=== PATIENT | female | born 1940 | race American Indian/Alaskan Native ===

== ENCOUNTER 2017-05-25 09:52 | Emergency (ER) | payer MEDICARE, OTHER ==
[2017-05-25 10:01] VITALS: BP 141/96; PULSE 89; RESP 14; TEMP 98.3; O2SAT 100
[2017-05-25 10:08] VITALS: BMI 24.6
[2017-05-25 11:27] LABS: PH,URINE 6.5 (4.7-8.0); URINE BILIRUBIN NEGATIVE (NEGATIVE); URINE BLOOD NEGATIVE (NEGATIVE); URINE GLUCOSE (UA) NEGATIVE (NEGATIVE); URINE LEUKOCYTE ESTERASE NEGATIVE Leu/uL (NEGATIVE); URINE NITRATE NEGATIVE (NEGATIVE); URINE PROTEIN NEGATIVE mg/dL (<30 mg/dL); URINE UROBILINOGEN 0.2 E.U./dL (<1 E.U./dL)
--- NOTE | 2017-05-25 11:27 | RAD ---
HISTORY: dizziness COMPARISON: 03/04/2017 FINDINGS: LUNGS: No active pulmonary disease. PLEURA: No significant pleural effusion identified, no pneumothorax apparent. CARDIOVASCULAR: Normal. OSSEOUS STRUCTURES: No significant abnormalities. VISUALIZED UPPER ABDOMEN: Normal. OTHER FINDINGS: None. IMPRESSION: No active disease.
[2017-05-25 11:28] LABS: URINE APPEARANCE CLEAR (CLEAR); URINE COLOR YELLOW (YELLOW)
[2017-05-25 11:29] LABS: ALB/GLOB RATIO 1.2 (1.1-1.8); ALBUMIN 4.4 g/dL (3.0-4.8); ALT/SGPT 32 U/L (7-56); AST/SGOT 32 U/L (15-39); BLOOD UREA NITROGEN 24 mg/dL (7-21); CALCIUM 11.2 mg/dL (8.4-10.5); GFR AFRICAN-AMERICAN > 60; GFR NON-AFRICAN AMERICAN 54
[2017-05-25 11:44] LABS: BASO # 0.02 K/mm3 (0.0-2.0); BASO % 0.3 % (0.0-3.0); EOS # 0.1 (0.0-0.7); EOS % 1.7 % (1.5-5.0); GRAN # 4.29 (1.4-6.5); GRAN % 59.2 % (50.0-68.0); HEMOGLOBIN 11.7 gm/dL (12.0-16.0); LYMPH # 2.1 (1.2-3.4); LYMPH % 29.1 % (22.0-35.0); MEAN CELL VOLUME 87.2 fL (80.0-105.0); MEAN CORPUSCULAR HEMOGLOBIN 27.8 pg (25.0-35.0); MEAN CORPUSCULAR HGB CONC 31.9 g/dl (31.0-37.0); MEAN PLATELET VOLUME 11.1 fl (7.0-11.0); MONO # 0.7 (0.1-0.6); MONO % 9.7 % (1.0-6.0); PLATELET COUNT 203 10^3/uL (120.0-450.0); RBC 4.21 10^6/uL (3.5-6.1); RED CELL DISTRIBUTION WIDTH 13.1 % (11.5-14.5); WHITE BLOOD COUNT 7.2 10^3/ul (4.5-11.0)
--- NOTE | 2017-05-25 11:50 | CT ---
PROCEDURE: CT HEAD WITHOUT CONTRAST. HISTORY: headache, h/o aneurysm COMPARISON: 03/04/2017. TECHNIQUE: Axial computed tomography images were obtained through the head/brain without intravenous contrast. Radiation dose: Total exam DLP = 733.78 MGy-cm. This CT exam was performed using one or more of the following dose reduction techniques: Automated exposure control, adjustment of the mA and/or kV according to patient size, and/or use of iterative reconstruction technique. FINDINGS: HEMORRHAGE: Stable encephalomalacia region left temporal lobe. BRAIN: Surgical clips likely related to known history of aneurysm/repair in the expected location of the intracranial left carotid artery. VENTRICLES: Unremarkable. No hydrocephalus. CALVARIUM: Stable craniotomy findings left temporal parietal bone PARANASAL SINUSES: Unremarkable as visualized. No significant inflammatory changes. MASTOID AIR CELLS: Unremarkable as visualized. No inflammatory changes. OTHER FINDINGS: None. IMPRESSION: No significant interval change compared to the prior examination(s).
--- NOTE | 2017-05-25 12:21 | ED PDOC ---
Arrival/HPI - General Chief Complaint: Dizziness/Lightheaded Time Seen by Provider: 05/25/17 10:39 Historian: Patient - History of Present Illness Narrative History of Present Illness (Text): 05/25/17 10:41 A 77 year old female, whose past medical history includes vertigo and brain aneurysm, presents to the emergency department from her daycare program complaining of dizziness. Notes dizziness is worse when moving head, feels like spinning. Reports nausea with head movement, right ear pain and right sided headache but denies any chest pain, shortness of breath or any other complaints at this time. PMD: Dr. Deal Symptom Onset: Sudden Symptom Course: Unchanged Activities at Onset: Rest Context: Home Past Medical History - Provider Review Nursing Documentation Reviewed: Yes - Infectious Disease Hx of Infectious Diseases: None - Reproductive Menopause: Yes - Cardiac Hx Cardiac Disorders: Yes (AORTIC STENOSIS) Hx Hypertension: Yes - Pulmonary Hx Respiratory Disorders: No - Neurological HX Cerebrovascular Accident: Yes Hx Dizziness: Yes Other/Comment: use dto take meclizine - HEENT Hx HEENT Disorder: Yes Hx Blind: Yes (left eye) Hx Cataracts: Yes (L) - Renal Hx Renal Disorder: No - Endocrine/Metabolic Hx Endocrine Disorders: No - Hematological/Oncological Hx Blood Disorders: No - Integumentary Hx Dermatological Disorder: No - Musculoskeletal/Rheumatological Hx Musculoskeletal Disorders: Yes Hx Falls: Yes Hx Osteoarthritis: Yes Other/Comment: RIGHT TOTAL KNEE ARTHROPLASTY - Gastrointestinal Hx Gastrointestinal Disorders: Yes (CONSTIPATION) Hx Gastroesophageal Reflux: Yes - Genitourinary/Gynecological Hx Genitourinary Disorders: No - Psychiatric Hx Psychophysiologic Disorder: No Hx Substance Use: No - Surgical History Hx Cardiac Catheterization: Yes Other/Comment: aneurysm clipped with plate placement - Anesthesia Hx Anesthesia: Yes Hx Anesthesia Reactions: No Family/Social History - Physician Review Nursing Documentation Reviewed: Yes Family/Social History: No Known Family HX Smoking Status: Never Smoked Hx Alcohol Use: No Hx Substance Use: No Allergies/Home Meds Allergies/Adverse Reactions: Allergies No Known Allergies Allergy (Verified 05/25/17 09:57) Home Medications: Home Meds Medication Instructions Recorded Confirmed Gabapentin [Neurontin] 100 mg PO DAILY 10/22/16 05/25/17 Docusate [Colace] 1 tab PO HS 05/25/17 05/25/17 Telmisartan/Amlodipine 40 g PO DAILY 05/25/17 05/25/17 [Telmisartan-Amlodipine 40-10] amLODIPine [Norvasc] 5 mg PO DAILY 05/25/17 05/25/17 Review of Systems - Physician Review All systems were reviewed & negative as marked: Yes - Review of Systems ENT: Other (R ear pain) Respiratory: absent: SOB Cardiovascular: absent: Chest Pain Gastrointestinal: Nausea Neurological: Headache (R sided), Dizziness Physical Exam - Physical Exam Narrative Physical Exam (Text): Constitutional: No acute distress. Head: Normocephalic. Atraumatic. Eyes: PERRL. ENT: Moist mucous membranes. R TM obstructed by cerumen. Neck: Supple. Cardiovascular: Regular rate. Chest: No tenderness. Respiratory: Clear to auscultation bilaterally. GI: Soft. Nontender. Nondistended. Back: No CVA tenderness. Musculoskeletal: No tenderness or swelling of extremities. Skin: No rash. Neurologic: Alert, no focal deficit. Positive ely hallpike test. Vital Signs Reviewed: Yes Vital Signs Temp Pulse Resp BP Pulse Ox 05/25/17 10:01 98.3 F 89 14 141/96 H 100 Temperature: Afebrile Blood Pressure: Hypertensive Pulse: Regular Respiratory Rate: Normal Appearance: Positive for: Well-Appearing, Non-Toxic, Comfortable Pain Distress: None Mental Status: Positive for: Alert and Oriented X 3 Finger Stick Blood Glucose: 140 Medical Decision Making ED Course and Treatment: 05/25/17 10:41 Impression: A 77 year old female with dizziness. Plan: -- EKG -- chest xray -- CT head -- labs -- Urinalysis -- Antivert -- Reassess and disposition Progress Notes: 05/25/17 11:00 EKG: Ordered, reviewed, and independently interpreted the EKG. Rate : 80 BPM Rhythm : NSR Interpretation : No ST/T wave changes chest xray: Creator : Vinay Dominguez MD IMPRESSION: No active disease. 05/25/17 11:52 CT HEAD WITHOUT CONTRAST Creator : Negro Terrazas MD FINDINGS: HEMORRHAGE: Stable encephalomalacia region left temporal lobe. BRAIN: Surgical clips likely related to known history of aneurysm/repair in the expected location of the intracranial left carotid artery. VENTRICLES: Unremarkable. No hydrocephalus. CALVARIUM: Stable craniotomy findings left temporal parietal bone PARANASAL SINUSES: Unremarkable as visualized. No significant inflammatory changes. MASTOID AIR CELLS: Unremarkable as visualized. No inflammatory changes. OTHER FINDINGS: None. IMPRESSION: No significant interval change compared to the prior examination(s). Patient states she feels much better. Labs unremarkable. Discussed case with Dr. Hart who states patient can see him in office today or tomorrow. Will discharge home, continue meclizine, return to ER for worsening dizziness, vomiting, syncope, fever, dyspnea, or any other problem. - Lab Interpretations Lab Results: 05/25/17 11:07 05/25/17 11:07 Lab Results 05/25/17 11:15: Urine Color Yellow, Urine Appearance Clear, Urine pH 6.5, Ur Specific [place] <= 1.005, Urine Protein Negative, Urine Glucose (UA) Negative, Urine Ketones Negative, Urine Blood Negative, Urine Nitrate Negative, Urine Bilirubin Negative, Urine Urobilinogen 0.2, Ur Leukocyte Esterase Negative 05/25/17 11:07: Sodium 142, Potassium 3.8, Chloride 101, Carbon Dioxide 30, Anion Gap 15, BUN 24 H, Creatinine 1.0, Est GFR ( Amer) > 60, Est GFR ( Non-Af Amer) 54, Random Glucose 91, Calcium 11.2 H, Total Bilirubin 0.6, AST 32 , ALT 32, Alkaline Phosphatase 82, Total Protein 8.1, Albumin 4.4, Globulin 3.7 , Albumin/Globulin Ratio 1.2 05/25/17 11:07: WBC 7.2, RBC 4.21, Hgb 11.7 L, Hct 36.7, MCV 87.2, MCH 27.8, MCHC 31.9, RDW 13.1, Plt Count 203, MPV 11.1 H, Gran % 59.2, Lymph % (Auto) 29.1 , [place] % (Auto) 9.7 H, Eos % (Auto) 1.7, Baso % (Auto) 0.3, Gran # 4.29, Lymph # 2.1, [place] # 0.7 H, Eos # 0.1, Baso # 0.02 I have reviewed the lab results: Yes - RAD Interpretation Radiology Orders: 05/25/17 10:57 HEAD W/O CONTRAST [CT] Stat CHEST PORTABLE [RAD] Stat - EKG Interpretation Interpreted by ED Physician: Yes Type: 12 lead EKG - Medication Orders Current Medication Orders: Discontinued Medications Meclizine HCl (Antivert) 25 mg PO STAT STA Stop: 05/25/17 10:58 Last Admin: 05/25/17 11:46 Dose: 25 mg - Scribe Statement The provider has reviewed the documentation as recorded by the Krystina Mondragon Provider Scribe Attestation: All medical record entries made by the Joaniblucia were at my direction and personally dictated by me. I have reviewed the chart and agree that the record accurately reflects my personal performance of the history, physical exam, medical decision making, and the department course for this patient. I have also personally directed, reviewed, and agree with the discharge instructions and disposition. Disposition/Present on Arrival - Present on Arrival Any Indicators Present on Arrival: No History of DVT/PE: No History of Uncontrolled Diabetes: No Urinary Catheter: No History of Decub. Ulcer: No History Surgical Site Infection Following: None - Disposition Have Diagnosis and Disposition been Completed?: Yes Diagnosis: BPPV (benign paroxysmal positional vertigo) Disposition: HOME/ ROUTINE Disposition Time: 12:25 Patient Plan: Discharge Condition: STABLE Discharge Instructions (ExitCare): Vertigo (ED) Prescriptions: Meclizine [Antivert] 25 mg PO TID PRN #20 tab PRN Reason: Dizziness Referrals: Orlando Hart MD [Staff Provider] - Follow up with primary
--- NOTE | 2017-05-25 17:37 | CARD ---
APPROVED REPORT EKG Measurement Heart [id number] <Conclusion> Normal sinus rhythm Minimal voltage criteria for LVH, may be normal variant Borderline ECG
== END 2017-05-25 12:45 | disposition home or self-care (01) ==
LOC: ED 09:52
DX: H81.10 Benign paroxysmal vertigo, unspecified ear (principal); M19.90 Unspecified osteoarthritis, unspecified site